=== PATIENT | female | born 1980 | race Asian ===

== ENCOUNTER 2017-07-12 13:25 | Emergency (ER) | payer OTHER ==
[~2017-07-12] VITALS: Ht 175.3 cm; Wt 118.4 kg
[2017-07-12 13:50] VITALS: TEMP 98.2
[2017-07-12 15:36] VITALS: BP 166/85
== END 2017-07-12 16:06 | disposition home or self-care (01) ==
LOC: ED 13:25
DX: O16.9 Unspecified maternal hypertension, unspecified trimester (principal)
CPT/HCPCS: 96365; 96367; 99284; J0360